=== PATIENT | female | born 1955 | race Caucasian/White ===

== ENCOUNTER 2016-06-22 10:27 | Emergency (ER) | payer OTHER ==
[2016-06-22 10:59] VITALS: BP 145/62; PULSE 84; RESP 18; TEMP 98; O2SAT 97
[2016-06-22] MEDS ORDERED: IPRATROPIUM/ALBUTEROL 3 ML DEYVIAL IH ONE (11:48)
[2016-06-22] MEDS ORDERED: predniSONE 20 MG TAB PO ONE (12:37)
--- NOTE | 2016-06-22 12:43 | UCPHY ---
H & P Time Seen by Provider: 06/22/16 11:27 Smoking Status: Never smoked Constitutional: Initial Vital Signs Temperature (C) 36.6 C 06/22/16 10:55 Heart Rate 84 06/22/16 10:55 Respiratory Rate 18 06/22/16 10:55 Blood Pressure 145/62 H 06/22/16 10:55 O2 Sat (%) 97 06/22/16 10:55 O2 Delivery Mode Room Air Allergies/Adverse Reactions: aluminum acetate [From [place]] Allergy (Verified 03/05/16 08:28) benzalkonium [From [place]] Allergy (Verified 03/05/16 08:28) diltiazem Allergy (Verified 03/05/16 08:28) iodine Allergy (Verified 03/05/16 08:28) protein supplement [From [place]] Allergy (Verified 03/05/16 08:28) sumatriptan [From Imitrex] Allergy (Verified 03/05/16 08:28) sumatriptan succinate [From Imitrex] Allergy (Verified 03/05/16 08:28) zileuton [From Zyflo] Allergy (Verified 03/05/16 08:28) STEROIDS ENDING IN MICHAEL Allergy (Uncoded 01/09/10 18:06) Home Medications: Medication Instructions Recorded Lita Allergy 03/05/16 Amlodipine Besylate 03/05/16 Amoxicillin/Clavulanate Pot 875 mg PO BID #14 tab 03/05/16 [Augmentin 875 MG TAB (*)] Bystolic 03/05/16 Estrace 03/05/16 Fluticasone Nasal [Flonase Nasal 2 sprays NASAL DAILY #1 mdi 03/05/16 [place] (RX)] LORAZEPAM 03/05/16 Losartan Potassium 03/05/16 Montelukast Sodium 03/05/16 No Doze 03/05/16 Pantoprazole Sodium 03/05/16 AZITHROMYCIN [Z-PACK] 250 mg PO DAILY #6 tab 06/22/16 methylPREDNISolone [Medrol Dose 1 each PO AD #1 ea 06/22/16 Herb] Medical Decision Making - Data Points Medications Given: Discontinued Medications Albuterol/Ipratropium (Duoneb) 3 ml IH EDNOW ONE Stop: 06/22/16 11:49 Last Admin: 06/22/16 12:06 Dose: 3 ml Departure - Departure Disposition: Home, Routine, Self-Care Clinical Impression: Bronchitis, Laryngitis Condition: Good Instructions: Acute Bronchitis (ED), Laryngitis (ED) Additional Instructions: Follow-up with your primary care physician in 3-5 days. Referrals: [facility] [Other] - As per Instructions Prescriptions: AZITHROMYCIN [Z-PACK] 250 mg PO DAILY #6 tab methylPREDNISolone [Medrol Dose Herb] 1 each PO AD #1 ea - PQRS PQRS Measurement: na
== END 2016-06-22 13:09 | disposition home or self-care (01) ==
LOC: CED 10:27
DX: J40 Bronchitis, not specified as acute or chronic (principal); J04.0 Acute laryngitis
CPT/HCPCS: 71020-PO; G0463-PO

== ENCOUNTER 2017-01-25 10:13 | Observation (INO) | payer OTHER ==
--- NOTE | 2017-01-25 10:30 | CPEKG ---
Heart Rate: 69 RR Interval: 870 P-R Interval: 176 QRSD Interval: 104 QT Interval: 396 QTC Interval: 425 P [place]: 69 QRS [place]: 10 T Wave [place]: 13 EKG Severity - NORMAL ECG - EKG Impression: SINUS RHYTHM Electronically Signed By: Augustine Cuenca 25-Jan-2017 15:13:34
[2017-01-25 10:53] LABS: % IMMATURE GRANULYOCYTES 0.3 % (0.0-1.1); ABSOLUTE IMMATURE GRANULOCYTES 0.02 10^3/uL (0.00-0.10); ADD DIFF? NO; ADD MORPH? NO; ADD SCAN? NO; ATYPICAL LYMPHOCYTE FLAG 10 (0-99); FRAGMENT RBC FLAG 0 (0-99); HEMATOCRIT 46.7 % (38.0-47.0); HEMOGLOBIN 15.9 g/dL (12.6-16.3); LEFT SHIFT FLG 0 (0-99); LIPEMIA HEMOLYSIS FLAG 90 (0-99); MEAN CELL HEMOGLOBIN 30.6 pg (27.9-34.1); MEAN CELL VOLUME 89.8 fL (81.5-99.8); MEAN PLATELET VOLUME 10.4 fL (8.7-11.7); PLATELET CLUMPS FLAG 0 (0-99); PLATELET COUNT 242 10^3/uL (150-400); RED CELL DISTRIBUTION WIDTH 12.9 % (11.5-15.2)
--- NOTE | 2017-01-25 11:02 | EDPHY ---
H & P Time Seen by Provider: 01/25/17 10:28 HPI/ROS: Chief complaint. Chest pain HPI. 61-year-old female presents emergency department with chest pain for 3-4 days. Described as sharp radiates to neck, left shoulder blade and arm. Began 1 week ago with low abdominal cramping. 4 days ago was in the upper abdomen. She had a CT abdomen pelvis with oral contrast she has problems with IV contrast. This was reported as normal. Symptoms are better with rest and worse with exertion. No real shortness of breath that has a known PFO and gets hypoxic with exercise. She has had no fever or cough. It feels like GERD but much more intense and she has been using to medications for her reflux without affect. She had a cardiac catheterization in 2014 which showed PFO. She does have a history of arrhythmias. She does have ASCVD but does not know the results of her catheterization. ROS Constitutional. no fever/chills, no weakness Eyes. no problems with vision ENT. no sore throat, no nasal drainage Cardiovascular. Chest pain Respiratory. no shortness of breath, no cough Abdominal. Upper abdominal pain . no problems urinating MS. no calf pain/swelling, no neck/back pain, no joint pain Skin. no rash Lymph. no swollen glands Neuro. no headache, no dizziness, no difficulty walking or with speech Past Medical/Surgical History: Past medical history mast cell activation syndrome, hypertension, cholecystectomy, PFO, angina, complex migraines, GERD, PVCs, known right bundle branch block, regional pain syndrome right arm, hysterectomy Social History: , nonsmoker, no alcohol Smoking Status: Never smoked Physical Exam: General Appearance: Alert well-developed female mild distress vital signs stable Eyes: Pupils equal and round no pallor or injection. ENT, Mouth: Mucous membranes are moist. Respiratory: There are no retractions, lungs are clear to auscultation. Cardiovascular: Regular rate and rhythm. Gastrointestinal: Abdomen is soft and mild tenderness in the epigastrium, no masses, bowel sounds normal. Neurological: Awake and alert, sensory and motor exams grossly normal. Skin: Warm and dry, no rashes. Musculoskeletal: Neck is supple nontender. Extremities symmetrical, full range of motion. Psychiatric: Patient is oriented X 3, there is no agitation. Constitutional: Initial Vital Signs Temperature (C) 37.0 C 10/02/17 10:18 Heart Rate 88 01/25/17 10:18 Respiratory Rate 16 01/25/17 10:18 Blood Pressure 144/104 H 01/25/17 10:18 O2 Delivery Mode Room Air Allergies/Adverse Reactions: aluminum acetate [From [place]] Allergy (Verified 03/05/16 08:28) benzalkonium [From [place]] Allergy (Verified 03/05/16 08:28) diltiazem Allergy (Verified 03/05/16 08:28) iodine Allergy (Verified 03/05/16 08:28) protein supplement [From [place]] Allergy (Verified 03/05/16 08:28) sumatriptan [From Imitrex] Allergy (Verified 03/05/16 08:28) sumatriptan succinate [From Imitrex] Allergy (Verified 03/05/16 08:28) zileuton [From Zyflo] Allergy (Verified 03/05/16 08:28) STEROIDS ENDING IN MICHAEL Allergy (Uncoded 01/09/10 18:06) Home Medications: Medication Instructions Recorded Estradiol [Estrace Vaginal (*)] 1 otf VAG HS 03/05/16 Fluticasone Nasal [Flonase Nasal 2 sprays NASAL DAILY #1 mdi 03/05/16 [place] (RX)] Ipratropium/Albuterol [Duoneb (*)] 3 ml IH DAILY PRN 03/05/16 LORazepam [Ativan (*)] 1 mg PO 03/05/16 Losartan Potassium [Cozaar 50 mg 100 mg PO 03/05/16 (*)] Montelukast Sodium [Singulair 10 10 mg PO DAILY@1800 03/05/16 mg (*)] Nebivolol HCl [Bystolic 5 mg (*)] 5 mg PO HS 03/05/16 Pantoprazole Sodium [Protonix 40mg 40 mg PO DAILY 03/05/16 (*)] amLODIPine BESYLATE [Norvasc 5 mg 5 mg PO DAILY 03/05/16 (*)] diphenhydrAMINE [Benadryl 25 MG 25 mg PO DAILY PRN 03/05/16 (*)] Albuterol [Proventil Inhaler HFA 1 - 2 puffs IH DAILY PRN 01/25/17 (*)] Albuterol [Proventil Neb] 3 ml IH DAILY PRN 01/25/17 Aspirin [Aspirin 325 mg (*)] 325 mg PO DAILY 01/25/17 Cholecalciferol Vit D3 [Vitamin D3 5,000 units PO DAILY 01/25/17 (*)] EPINEPHrine [Epipen 0.3 MG] 0.3 mg IM ONCE PRN 01/25/17 Estradiol [Vivelle-Dot 0.075MG (*)] 0.075 mg TD BRIGHT 01/25/17 FLUTICASONE/SALMETEROL [ADVAIR HFA 1 puffs IH DAILY PRN 01/25/17 230-21 MCG INHALER] Famotidine [Pepcid 20 MG (*)] 20 mg PO BID 01/25/17 Fluticasone/Salmeterol [Advair Hfa 1 puffs IH DAILY PRN 01/25/17 115-21 Mcg Inhaler] Herbals/Supplements -Info Only 1 ea PO DAILY 01/25/17 Vitamin B Complex [B Complex] 1 each PO DAILY 01/25/17 guaiFENesin [Mucinex 600 MG (*)] 600 mg PO BID 01/25/17 predniSONE [predniSONE] 10 mg PO DAILY PRN 01/25/17 Medical Decision Making - Diagnostics EKG Interpretation: EKG interpreted by me shows normal sinus rhythm with normal interval and axis. QRS is normal there is no significant ST elevation or depression. There is no arrhythmia. The rate is 69 Imaging Results: Imaging Impressions Chest X-Ray 01/25/17 10:33 Impression: No evidence of acute cardiopulmonary abnormality. Chest x-ray interpreted by me is negative Procedures: IV normal saline, monitor ED Course/Re-evaluation: Re-evaluation 12:30 p.m. patient is stable. The patient and I discussed imaging and lab results. We discussed treatment plan including recommendation for admission. She expresses understanding I consulted discussed the case with Dr. Evans, hospitalist, who agrees to the admission Differential Diagnosis: I considered acute coronary syndrome, pulmonary embolus, GERD, pancreatitis. It is concerning that the patient has exertional symptoms that are relieved by rest increased concern for acute coronary syndrome - Data Points Laboratory Results: Laboratory Results 01/25/17 10:35 01/25/17 10:35 01/25/17 01/25/17 10:35 10:35 WBC 6.45 10^3/uL 10^3/uL (3.80-9.50) RBC 5.20 10^6/uL 10^6/uL (4.18-5.33) Hgb 15.9 g/dL g/dL (12.6-16.3) Hct 46.7 % % (38.0-47.0) MCV 89.8 fL fL (81.5-99.8) MCH 30.6 pg pg (27.9-34.1) MCHC 34.0 g/dL g/dL (32.4-36.7) RDW 12.9 % % (11.5-15.2) Plt Count 242 10^3/uL 10^3/uL (150-400) MPV 10.4 fL fL (8.7-11.7) Neut % (Auto) 63.3 % % (39.3-74.2) Lymph % (Auto) 28.5 % % (15.0-45.0) [place] % (Auto) 5.0 % % (4.5-13.0) Eos % (Auto) 1.7 % % (0.6-7.6) Baso % (Auto) 1.2 % % (0.3-1.7) Nucleat RBC Rel Count 0.0 % % (0.0-0.2) Absolute Neuts (auto) 4.08 10^3/uL 10^3/uL (1.70-6.50) Absolute Lymphs (auto) 1.84 10^3/uL 10^3/uL (1.00-3.00) Absolute Monos (auto) 0.32 10^3/uL 10^3/uL (0.30-0.80) Absolute Eos (auto) 0.11 10^3/uL 10^3/uL (0.03-0.40) Absolute Basos (auto) 0.08 10^3/uL 10^3/uL (0.02-0.10) Absolute Nucleated RBC 0.00 10^3/uL 10^3/uL (0-0.01) Immature Gran % 0.3 % % (0.0-1.1) Immature Gran # 0.02 10^3/uL 10^3/uL (0.00-0.10) Sodium 138 mEq/L mEq/L (134-144) Potassium 3.8 mEq/L mEq/L (3.5-5.2) Chloride 103 mEq/L mEq/L (97-110) Carbon Dioxide 25 mEq/l mEq/l (22-31) Anion Gap 10 mEq/L mEq/L (8-16) BUN 20 mg/dL mg/dL (7-23) Creatinine 0.9 mg/dL mg/dL (0.6-1.0) Estimated GFR > 60 Glucose 86 mg/dL mg/dL (70-100) Calcium 10.0 mg/dL mg/dL (8.5-10.4) Total Bilirubin 0.7 mg/dL mg/dL (0.1-1.4) Conjugated Bilirubin 0.3 mg/dL mg/dL (0.0-0.5) Unconjugated Bilirubin 0.4 mg/dL mg/dL (0.0-1.1) AST 30 IU/L IU/L (14-46) ALT 28 IU/L IU/L (9-52) Alkaline Phosphatase 62 IU/L IU/L (38-126) Troponin I < 0.012 ng/mL ng/mL (0.000-0.034) Total Protein 6.9 g/dL g/dL (6.3-8.2) Albumin 4.0 g/dL g/dL (3.5-5.0) Lipase 88 IU/L IU/L (23-300) Specimen Hemolysis 100 Medications Given: Discontinued Medications Pantoprazole Sodium (Protonix) 40 mg PO DAILY ERUM Stop: 07/24/17 13:14 Last Admin: 01/25/17 14:14 Dose: Not Given Departure - Departure Disposition: [facility] Acute Condition: Good
[2017-01-25 11:11] LABS: ANION GAP 10 mEq/L (8-16); CARBON DIOXIDE 25 mEq/l (22-31); CHLORIDE 103 mEq/L (97-110); CREATININE 0.9 mg/dL (0.6-1.0); GLOMERULAR FILTRATION RATE > 60; GLUCOSE 86 mg/dL (70-100); POTASSIUM 3.8 mEq/L (3.5-5.2); SODIUM 138 mEq/L (134-144)
[2017-01-25 11:23] LABS: TROPONIN I < 0.012 ng/mL (0.000-0.034)
[2017-01-25 12:22] LABS: ALANINE AMINOTRANSFERASE 28 IU/L (9-52); ALKALINE PHOSPHATASE 62 IU/L (38-126); ASPARTATE AMINOTRANSFERASE 30 IU/L (14-46); BILIRUBIN,TOTAL 0.7 mg/dL (0.1-1.4); BILIRUBIN-CONJUGATED 0.3 mg/dL (0.0-0.5); BILIRUBIN-UNCONJUGATED 0.4 mg/dL (0.0-1.1); SPECIMEN HEMOLYSIS 100; TOTAL PROTEIN 6.9 g/dL (6.3-8.2)
[2017-01-25] MEDS ORDERED: ONDANSETRON DISINTEGRATING 4 MG TAB PO PRN ×2 (13:10→13:35)
[2017-01-25] MEDS ORDERED: ACETAMINOPHEN 325 MG TAB PO PRN ×2 (13:10→13:35)
[2017-01-25] MEDS ORDERED: ONDANSETRON 4 MG/2 ML VIAL IVP PRN ×2 (13:10→13:35)
[2017-01-25] MEDS ORDERED: PANTOPRAZOLE SODIUM 40 MG TAB PO SCH ×2 (13:15→13:30)
[2017-01-25] MEDS ORDERED: ALBUTEROL 200 PUFFS/18 GM MDI IH PRN (14:34)
[2017-01-25] MEDS ORDERED: SALMETEROL IH PRN ×2 (14:34)
[2017-01-25] MEDS ORDERED: FLUTICASONE IH PRN ×2 (14:34)
--- NOTE | 2017-01-25 14:37 | GHP ---
[f rep st] HISTORY AND PHYSICAL DATE OF ADMISSION: 01/25/2017 CHIEF COMPLAINT: Chest pain. HISTORY OF PRESENT ILLNESS: A 61-year-old female with a history of recent chronic epigastric pain, b eing managed by outpatient Gastroenterology and her primary care provider, who reports more consisten t and intense epigastric pain over the course of the last week. The patient then noted approximately 72 hours ago that she was developing intermittent left-sided pressure-like chest pain that occasiona lly would involve her left shoulder. The patient noted the symptoms specifically when she was exerti ng herself and said predictably the symptoms would resolve when she rested. It was not associated wi th shortness of breath, nausea, vomiting, or diaphoresis. She does report that these chest symptoms are new and that prior to this she was having only epigastric pain, without any exertional component. PAST MEDICAL HISTORY: 1. Adrenal adenoma. 2. Hypertension. 3. Thyroid nodules. 4. Mast cell activation syndrome. 5. Gastroesophageal reflux disease, on both PPI and H2 peter. 6. Regional pain syndrome, chronic. SOCIAL HISTORY: Negative for tobacco, alcohol or illicit drugs. FAMILY HISTORY: Negative for heart disease. REVIEW OF SYSTEMS: A 10-point review of systems is negative, with the exception of that reported in the HPI. PHYSICAL EXAMINATION: VITAL SIGNS: Blood pressure 149/80, heart rate 66, respiratory rate 17, 94% o n room air. GENERAL: This is a healthy-appearing middle-aged female in no acute distress. HEENT: Notable for moist mucous membranes. Eye exam is negative for any icterus. CARDIAC: Regular rate an d rhythm. PULMONARY: Clear to auscultation bilaterally. GASTROINTESTINAL: Positive bowel sounds. The abdomen is soft and nontender in all 4 quadrants. MUSCULOSKELETAL: Negative for any lower extr emity edema. SKIN: Negative for any rashes. NEUROLOGIC: She is alert and oriented x3. PSYCHIATRI C: She is pleasant and cooperative on interview and examination. DATA: Troponin is less than 0.012. CBC and BMP are normal. EKG, which I personally reviewed and interpreted, shows no acute infiltrates or edema. EKG shows no acute changes. ASSESSMENT AND PLAN: This is a 61-year-old female presenting with exertional chest pain. 1. Acute exertional chest pain. Suspicion for cardiac ischemia is low based on her recent intermitt ent inconsistent symptoms, without a troponin excursion. EKG is not concerning for an acute injury. Will admit. Rule out with serial troponins, EKGs. Have ordered a treadmill test for the morning if she effectively rules out. 2. Hypertension. Will continue the patient's home medications once reconciled. 3. Epigastric pain. The patient has already had CT abdominal imaging and a thorough workup by [facility], including an EGD earlier this spring. Will simply continue her home medicati ons and follow clinically. 4. Prophylaxis with Lovenox. 5. Diet: Cardiac. DISPOSITION: I expect less than 2 midnights if the patient rules out and has negative stress testing in the morning. I have discussed the case with the emergency room physician. The patient will be triaged to the PCU for cardiac monitoring, rule out and care. /[id number]/MODL
[2017-01-25] MEDS ORDERED: MONTELUKAST SODIUM 10 MG TAB PO SCH (18:00)
[2017-01-25] MEDS: PANTOPRAZOLE SODIUM 40 MG TAB PO SCH (18:21)
[2017-01-25] MEDS: guaiFENesin 600 MG TAB.ER PO SCH (20:42)
[2017-01-25] MEDS ORDERED: FAMOTIDINE 20 MG TAB PO SCH (21:00)
[2017-01-25] MEDS ORDERED: LOSARTAN POTASSIUM 50 MG TAB PO SCH (21:00)
[2017-01-25] MEDS ORDERED: ESTRADIOL 42.5 GM CRTUBE VG SCH (21:00)
[2017-01-25] MEDS ORDERED: LORazepam 1 MG TAB PO SCH (21:00)
[2017-01-25] MEDS ORDERED: NEBIVOLOL HCL 5 MG TAB PO SCH (21:00)
[2017-01-26 07:49] VITALS: TEMP 97.9
[2017-01-26] MEDS: guaiFENesin 600 MG TAB.ER PO SCH (08:24)
[2017-01-26] MEDS ORDERED: Herbals/Supplements -Info Only PO SCH (09:00)
[2017-01-26] MEDS ORDERED: amLODIPine BESYLATE 5 MG TAB PO SCH (09:00)
[2017-01-26] MEDS ORDERED: ENOXAPARIN 40 MG/0.4 ML SYR SC SCH ×2 (09:00)
[2017-01-26] MEDS ORDERED: ASPIRIN 325 MG TAB PO SCH (09:00)
[2017-01-26] MEDS ORDERED: FLUTICASONE NASAL 120 SPRAYS/16 GM MDI EACHNARE SCH (09:00)
[2017-01-26] MEDS ORDERED: VITAMIN B COMPLEX 1 EA CAP/TAB PO SCH (09:00)
[2017-01-26] MEDS ORDERED: PANTOPRAZOLE SODIUM 40 MG TAB PO SCH (09:00)
[2017-01-26] MEDS ORDERED: CHOLECALCIFEROL VIT D3 2,000 UNITS TAB/CAP PO SCH (09:00)
[2017-01-26] MEDS: PANTOPRAZOLE SODIUM 40 MG TAB PO SCH (10:28)
--- NOTE | 2017-01-26 11:01 | ASMTCMCOM ---
CM Note CM Note Notes: Met with pt. 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 Pt reports coming to transport home. No case management d/c needs identified d/t pt age and activity levels prior to admission. Case management d/c poc: Home Independent when medically stable. Date Signed: 01/26/2017 11:00 AM Electronically Signed By:Ada Islas RN
--- NOTE | 2017-01-26 11:33 | CPR ---
[f rep st] NONINVASIVE CARDIAC PROCEDURE REPORT TEST PERFORMED: Treadmill stress test. TEST ORDERED BY: Dr. Elvia Evans. REASON FOR TEST: Chest discomfort, epigastric discomfort that radiates to back, and dizziness. FINDINGS: Resting EKG shows a regular sinus rhythm with a ventricular rate of 67. There are no isch emic changes noted. She does have asthma and she did use her inhaler prior to starting exercise. Re sting blood pressure 120/84. Resting heart rate 67. Exercise portion: She exercised according to the Tony protocol for a total of 9 minutes and 26 seco nds. She reached her maximal heart rate of 140. Max MET level 10.4. She had mild epigastric discom fort at 2 minutes into the exercise portion. At times, it did radiate through to her back. Her EKG remained regular sinus rhythm throughout these episodes. She was able to exercise into the 3rd stage . At that time, she did feel chest discomfort and slight lightheadedness. The exercise was stopped. Her EKG remained stable with no ischemic changes. She then was laid down for recovery. She became nauseated. The epigastric discomfort did subside wh ile lying down. She would feel episodes of dizziness and facial flush with her face color bright red . Her blood pressure at that time was 106/80. At conclusion of the test recovery period, her blood pressure did normalize. In recovery her EKG remained regular sinus rhythm. Final resting blood pres sure 116/76, heart rate 91, and she was feeling much better. The nausea, dizziness, and lightheadedn ess had subsided along with the epigastric discomfort. This case was discussed with Dr. Cole Noyola. She has a history of mast cell and also a PFO with no closure due to likely mast cell reactions. She did have a cath in 2014 that showed no obstructive di sease. She has continued to have this epigastric discomfort since 2014. Her symptoms have not fisher ed from that time. She also has a history of some adrenal abnormalities. It is felt that the epigas tric discomfort that progresses to chest discomfort and nausea and resulting dizziness and the facial flush is likely related to the mass cell and released of histamines. This was discussed with Dr. Ramirez who will further evaluate and make recommendations. At the conclusion of the test she was feeling much better. Her EKG remained stable with regular sinu s rhythm. At this time, she is stable to return to her room. /[id number]/MODL
[2017-01-26 11:43] VITALS: BP 129/85; PULSE 68; RESP 18; O2SAT 94
--- NOTE | 2017-01-26 12:58 | GDS ---
[f rep st] DISCHARGE SUMMARY DISCHARGE DIAGNOSES: Include: 1. Chest pain, thought not cardiac. 2. Epigastric pain, etiology unclear. 3. Suspected mast cell activation syndrome. 4. History of adrenal adenoma. 5. Hypertension. 6. History of thyroid nodules. 7. Gastroesophageal reflux disease. 8. Regional pain syndrome. HISTORY OF PRESENT ILLNESS: This is a 61-year-old female, who presented with complaints of persisten t chronic epigastric pain and exertional left-sided chest pressure. [facility], please see the History and Physical dated 01/25/2017. CONSULTATIVE SERVICES: None. PROCEDURES: On 01/26/2017, the patient underwent graded treadmill stress testing. The patient had n o EKG indications of ischemia, with appropriate heart rate and blood pressure responses to stress. S he did have persistent epigastric symptoms and some flushing during her recovery phase, thought nonca rdiac in nature when testing reviewed by Cardiology. HOSPITAL COURSE: By issue: 1. Chest pain. The patient has unusual history that made her symptoms more likely noncardiac, howev er, does have hypertension and some family history of relatives with heart disease later in life. Th e patient was ruled out overnight on the PCU and taken for treadmill stress testing, which was negati ve for any inducible ischemia. We have recommended that the patient continue following with her outp atient gastroenterology and primary care team for long-term management of her suspected mast cell act ivation syndrome and chronic epigastric pain. 2. Hypertension. The patient's blood pressure remained well controlled on her home medications. No changes were made to her regimen during this hospital stay. MEDICATIONS AT TIME OF DISPOSITION: Please reference the med rec printed on 01/26/2017. PENDING STUDIES: At the time of this dictation, none. FOLLOWUP: Appointments include: 1. With outpatient Gastroenterology for continued workup of her persistent epigastric pain. 2. With her PCP for ongoing med titration for her suspected mast cell activation syndrome. I spent greater than 30 minutes in the planning and coordination of this discharge. /[id number]/MODL
--- NOTE | 2017-01-26 14:00 | ASDISCHSUM ---
Discharge Information Plan Status:Home with No Needs Medically Cleared to Leave:01/26/2017 Discharge Date:01/26/2017 12:12 PM CM D/C Disposition:Home, Routine, Self-Care ADT D/C Disposition:Home, Routine, Self-Care Projected Discharge Date:01/26/2017 12:12 PM Transportation at D/C:Family Discharge Delay Reason: Follow-Up Date:01/26/2017 12:12 PM Discharge Slot: Final Diagnosis: Placement Information Patient Contact Information Contact Name:MEGHANA Relationship: Address:[facility] [address] City:[place] Alternate Phone: [facility]/Zip Code:[place] [address] Email: Financial Information Financial Class:Carlos Odom Primary Plan Desc:[facility]LOS CARBALLO [facility] [place] [facility] Primary Plan Number:[id number] Secondary Plan Desc: Secondary Plan Number: Assessment Information [facility] CM Progress Note CM Note CM Note Notes: Met with pt. 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 Pt reports coming to transport home. No case management d/c needs identified d/t pt age and activity levels prior to admission. Case management d/c poc: Home Independent when medically stable. Date Signed: 01/26/2017 11:00 AM Electronically Signed By:Ada Islas RN Intervention Information
[2017-01-31] MEDS ORDERED: ESTRADIOL VIVELLE 0.075 MG PATCH TD SCH (09:00)
== END 2017-01-26 12:12 | disposition home or self-care (01) ==
LOC: F2W 13:33
PROVIDERS: ADMIT Hospitalist; ATTEND Hospitalist
DX: R07.9 Chest pain, unspecified (principal); R10.13 Epigastric pain; I10 Essential (primary) hypertension; K21.9 Gastro-esophageal reflux disease without esophagitis; G90.50 Complex regional pain syndrome I, unspecified
CPT/HCPCS: 71020; 93005; 93017; G0378; J1650

== ENCOUNTER 2018-03-01 11:32 | Emergency (ER) | payer OTHER ==
--- NOTE | 2018-03-01 11:54 | CPEKG ---
Test Reason : OPEN Blood Pressure : / mmHG Vent. Rate : 077 BPM Atrial Rate : 077 BPM P-R Int : 171 ms QRS Dur : 106 ms QT Int : 395 ms P-R-T Axes : 067 004 032 degrees QTc Int : 448 ms Sinus rhythm Confirmed by Ghanshyam Spring ([id number]) on 03/01/2018 11:54:08 AM Referred By: Confirmed By:Ghanshyam Spring
--- NOTE | 2018-03-01 12:10 | EDPHY ---
H & P Stated Complaint: CP, HIGH HR Time Seen by Provider: 03/01/18 11:36 HPI/ROS: CHIEF COMPLAINT: Palpitations, episodic chest pain HISTORY OF PRESENT ILLNESS: The patient has a history of intermittent arrhythmia as well as "microvascular angina." She presents to the ED with complaints of tachycardia and chest pain that is been occurring intermittently at rest for the past day. The patient did receive a shingles vaccination yesterday. The patient has no history of coronary artery disease. She currently is taking Coreg. The patient denies cough or congestion. She denies asymmetric calf pain or swelling. She currently is chest pain-free. REVIEW OF SYSTEMS: A comprehensive 10 point review of systems is otherwise negative aside from elements mentioned in the history of present illness. Source: Patient - Personal History Current Tetanus Diphtheria and Acellular Pertussis (TDAP): Yes - Medical/Surgical History Hx Asthma: Yes Hx Chronic Respiratory Disease: No Hx Diabetes: No Hx Cardiac Disease: No Hx Renal Disease: No Hx Cirrhosis: No Hx Alcoholism: No Hx HIV/AIDS: No Hx Splenectomy or Spleen Trauma: No Other PMH: mast cell activation syndrome. HTN, roxanne, PFO, angina,. complex migraines. GERd, PVCs. B rotator cuff, RBBB, right adrenalectomy, chronic regionl pain syndrome (right arm). regional pain syndrome r arm. B achilles. hyst - Social History Smoking Status: Never smoked - Physical Exam Exam: General Appearance: Alert, no distress Eyes: Pupils equal and round no pallor or injection ENT, Mouth: Mucous membranes moist Respiratory: There are no retractions, lungs are clear to auscultation Cardiovascular: Regular rate and rhythm Gastrointestinal: Abdomen is soft and nontender, no masses, bowel sounds normal Neurological: A&O, normal motor function, normal sensory exam, normal cranial nerves Skin: Warm and dry, no rashes Musculoskeletal: Neck is supple nontender Extremities: symmetrical, full range of motion Psychiatric: Patient is oriented X 3, there is no agitation Constitutional: Initial Vital Signs Temperature (C) 36.8 C 03/01/18 11:37 Heart Rate 87 03/01/18 11:37 Respiratory Rate 18 03/01/18 11:37 Blood Pressure 153/114 H 03/01/18 11:37 O2 Sat (%) 95 03/01/18 11:37 O2 Delivery Mode Room Air Allergies/Adverse Reactions: aluminum acetate [From [place]] Allergy (Verified 03/05/16 08:28) benzalkonium [From [place]] Allergy (Verified 03/05/16 08:28) diltiazem Allergy (Verified 03/05/16 08:28) iodine Allergy (Verified 03/05/16 08:28) protein supplement [From [place]] Allergy (Verified 03/05/16 08:28) sumatriptan [From Imitrex] Allergy (Verified 03/05/16 08:28) sumatriptan succinate [From Imitrex] Allergy (Verified 03/05/16 08:28) zileuton [From Zyflo] Allergy (Verified 03/05/16 08:28) STEROIDS ENDING IN MICHAEL Allergy (Uncoded 01/09/10 18:06) Home Medications: Medication Instructions Recorded Estradiol [Estrace Vaginal (*)] 1 otf VAG HS 03/05/16 Fluticasone Nasal [Flonase Nasal 2 sprays NASAL DAILY #1 mdi 03/05/16 [place]] Ipratropium/Albuterol [Duoneb (*)] 3 ml IH DAILY PRN 03/05/16 LORazepam [Ativan (*)] 1 mg PO HS 03/05/16 Losartan Potassium [Cozaar 50 mg 100 mg PO HS 03/05/16 (*)] Montelukast Sodium [Singulair 10 10 mg PO DAILY@1800 03/05/16 mg (*)] Nebivolol HCl [Bystolic 5 mg (*)] 5 mg PO HS 03/05/16 Pantoprazole Sodium [Protonix 40mg 40 mg PO BID 03/05/16 (*)] amLODIPine BESYLATE [Norvasc 5 mg 5 mg PO DAILY 03/05/16 (*)] diphenhydrAMINE [Benadryl 25 MG 25 mg PO DAILY PRN 03/05/16 (*)] Albuterol [Proventil Inhaler HFA 1 - 2 puffs IH DAILY PRN 01/25/17 (*)] Albuterol [Proventil Neb] 3 ml IH DAILY PRN 01/25/17 Aspirin [Aspirin 325 mg (*)] 325 mg PO DAILY 01/25/17 Cholecalciferol Vit D3 [Vitamin D3 5,000 units PO DAILY 01/25/17 (*)] EPINEPHrine [Epipen 0.3 MG] 0.3 mg IM ONCE PRN 01/25/17 Estradiol [Vivelle-Dot 0.075MG (*)] 0.075 mg TD BRIGHT 01/25/17 FLUTICASONE/SALMETEROL [ADVAIR HFA 1 puffs IH DAILY PRN 01/25/17 230-21 MCG INHALER] Famotidine [Pepcid 20 MG (*)] 20 mg PO BID 01/25/17 Fluticasone/Salmeterol [Advair Hfa 1 puffs IH DAILY PRN 01/25/17 115-21 Mcg Inhaler] Herbals/Supplements -Info Only 1 ea PO DAILY 01/25/17 Vitamin B Complex [B Complex] 1 each PO DAILY 01/25/17 guaiFENesin [Mucinex 600 MG (*)] 600 mg PO BID 01/25/17 predniSONE 10 mg PO DAILY PRN 01/25/17 Medical Decision Making - Diagnostics EKG Interpretation: EKG: Complete interpretation has been separately recorded in the [facility] archive. Summary impression: Sinus rhythm, rate 77 ED Course/Re-evaluation: The patient presents to the ED with complaints of palpitations and atypical chest pain after receiving this shingles vaccination. The patient does have a history of microvascular angina. She has no known history of coronary artery disease. She typically is followed with exercise stress test which have been normal. Workup in the emergency department is unrevealing. She has no evidence of an arrhythmia noted on her EKG. There are no ischemic changes. Despite a day of symptoms her troponin is normal. At this point time I do feel the patient can be discharged home with instructions to return to the ED for markedly worsening symptoms or other concerns. Differential Diagnosis: Differential diagnosis considered includes vaccination reaction, acute coronary syndrome, pericarditis, arrhythmia - Data Points Laboratory Results: 03/01/18 11:57 POC Troponin I 0.00 ng/mL ng/mL (0.00-0.08) Point of Care Test Results: Chemistry 03/01/18 11:57 POC Troponin I 0.00 ng/mL ng/mL (0.00-0.08) Departure - Departure Disposition: Home, Routine, Self-Care Clinical Impression: Chest pain Condition: Good Instructions: Chest Pain (ED) Additional Instructions: 1. Based upon the testing done in the Emergency Department today we see no evidence of a heart attack. 2. We are unable to fully exclude coronary artery disease based upon the testing available in the Emergency Department. 3. For this reason, we would like you to be seen by cardiology for consideration of additional testing within the next 3 days. 4. Please contact the store clerk cashier you have been referred to schedule this appointment as soon as possible. Their offices are typically open from 8:30am- 5pm M-F. 5. Please return to the Emergency Department immediately for any recurrent chest pain, difficulty breathing or other concerns. Referrals: Kay Lemus MD [Primary Care Provider] - As per Instructions
[2018-03-01 13:00] VITALS: BP 122/73
== END 2018-03-01 12:58 | disposition home or self-care (01) ==
DX: R07.9 Chest pain, unspecified (principal); R00.0 Tachycardia, unspecified; I10 Essential (primary) hypertension; I20.8 Other forms of angina pectoris
CPT/HCPCS: 84484-PO

== ENCOUNTER 2018-10-03 11:33 | Emergency (ER) | payer OTHER | END 2018-10-03 14:27 | disposition home or self-care (01) ==

== ENCOUNTER → 2018-10-03 | Outpatient (CLI) | payer OTHER | LOC: BMCIMAGING 10:33 ==